=== PATIENT | male | born 1940 | race Caucasian/White ===

== ENCOUNTER → 2020-02-26 09:46 | Outpatient (BNVA) | payer MEDICARE, SELFPAY | PROVIDERS: Family Provider Family Medicine; PCP Nurse Practitioner Family; Visit Provider Urology | DX: R97.20 Elevated prostate specific antigen [PSA] (principal); R77.2 Abnormality of alphafetoprotein; N52.9 Male erectile dysfunction, unspecified | CPT/HCPCS: 81001 ==

== ENCOUNTER → 2021-02-25 09:03 | Outpatient (BNVA) | payer MEDICARE, SELFPAY | PROVIDERS: Family Provider Family Medicine; PCP Nurse Practitioner Family; Visit Provider Urology | DX: N40.0 Benign prostatic hyperplasia without lower urinary tract symptoms (principal); R97.20 Elevated prostate specific antigen [PSA]; N52.9 Male erectile dysfunction, unspecified | CPT/HCPCS: 81003; 84153 ==

== ENCOUNTER → 2022-02-28 15:46 | Outpatient (BNVA) | payer MEDICARE, SELFPAY | PROVIDERS: Family Provider Family Medicine; PCP Nurse Practitioner Family; Visit Provider Urology | DX: N52.9 Male erectile dysfunction, unspecified (principal); R97.20 Elevated prostate specific antigen [PSA] | CPT/HCPCS: 36415; 81003; 84153 ==